=== PATIENT | female | born 1960 | race African-American/Black ===

== ENCOUNTER → 2017-03-29 | Outpatient (CLI) | payer BC ==
--- NOTE | 2017-04-19 10:14 | KCIC ---
Bilateral digital screening mammograms: Reason for examination: Routine screening. No previous films have been received for comparison. An addendum will be issued if previous films are received. Interpretation is made with the benefit of CAD. The skin and nipples show no abnormalities. No abnormal lymph nodes are seen. The breast parenchyma is predominantly fatty. (Breast density: Category A.) There are no dominant masses, suspicious calcifications or architectural distortions. Impression: No evidence of malignancy. Recommend routine screening. BI-RADS Category 1: Negative. "Our facility is accredited by the [employer] Mammography [employer]." This patient's information has been entered into a reminder system for the patient to be notified with the results of her examination and a target date for the next mammogram. Electronically signed by: Joanna Bauman MD (04/19/2017 10:10 AM) [id number]
== END | disposition home or self-care (01) ==
LOC: KCIC MAMMO 16:42
PROVIDERS: ATTEND Family Medicine
DX: Z12.31 Encounter for screening mammogram for malignant neoplasm of breast (principal)
CPT/HCPCS: G0202; 77067